=== PATIENT | male | born 1965 | race Caucasian/White ===

== ENCOUNTER 2018-03-21 14:30 | Emergency (ER) | payer MEDICAID ==
[~2018-03-21] VITALS: Ht 185.4 cm; Wt 125.2 kg
[2018-03-21] MEDS ORDERED: KETOROLAC 30 MG/1 ML ONE (15:08)
[2018-03-21 15:28] LABS: MICROSCOPIC NOT IND
[2018-03-21 15:30] LABS: CULTURE INDICATED? NO
[2018-03-21] MEDS ORDERED: KETOROLAC 30 MG/1 ML IM ONE (15:30)
[2018-03-21 15:37] VITALS: BP 122/64
== END 2018-03-21 16:16 | disposition home or self-care (01) ==
LOC: ED 16:10
DX: S39.012A Strain of muscle, fascia and tendon of lower back, initial encounter (principal); E11.9 Type 2 diabetes mellitus without complications; E66.01 Morbid (severe) obesity due to excess calories; Z90.49 Acquired absence of other specified parts of digestive tract; Z87.891 Personal history of nicotine dependence; Z91.030 Bee allergy status; Z68.36 Body mass index [BMI] 36.0-36.9, adult; X58.XXXA Exposure to other specified factors, initial encounter; Y93.89 Activity, other specified; Y92.89 Other specified places as the place of occurrence of the external cause; Y99.8 Other external cause status
CPT/HCPCS: 72110; 81003; 96372; 99285; J1885